=== PATIENT | female | born 1950 | race Caucasian/White ===

== ENCOUNTER 2021-10-30 11:08 | Outpatient (CLI) | payer MEDICARE, BC, SELFPAY ==
[2021-10-30 13:43] LABS: Chloride* 103 mmol/L (96-114); Potassium* 4.1 mmol/L (3.6-5.1); Sodium* 141 mmol/L (135-149)
[2021-10-30 13:45] LABS: Creatinine* 0.6 mg/dL (0.5-1.5); Estimated Glomerular Filt Rate 95 ml/min
[2021-10-30 13:46] LABS: Blood Urea Nitrogen* 15 mg/dL (7-30); Carbon Dioxide* 28 mmol/L (20-32); Glucose* 108 mg/dL (60-115)
== END 2021-10-30 11:09 | disposition home or self-care (01) ==
PROVIDERS: PCP Family Medicine; Visit Provider Family Medicine
DX: Z00.00 Encounter for general adult medical examination without abnormal findings (principal); E03.9 Hypothyroidism, unspecified; K21.9 Gastro-esophageal reflux disease without esophagitis
CPT/HCPCS: 80048; 84443

== ENCOUNTER 2023-01-21 12:02 | Outpatient (CLI) | payer MEDICARE, BC, SELFPAY | END 2023-01-21 12:03 | disposition home or self-care (01) | PROVIDERS: PCP Family Medicine; Visit Provider Family Medicine | DX: E78.2 Mixed hyperlipidemia (principal); I10 Essential (primary) hypertension; E03.9 Hypothyroidism, unspecified | CPT/HCPCS: 80048; 80061; 84443 ==

== ENCOUNTER 2023-04-26 07:58 | Emergency (ER) | payer MEDICARE, BC, SELFPAY ==
[2023-04-26 08:06] VITALS: BP 193/86; PULSE 118; RESP 20; TEMP 37.5; O2SAT 98; BMI 28.4
[2023-04-26 08:34] VITALS: PULSE 103; O2SAT 97
[2023-04-26 08:56] LABS: PCR FLU A Negative PCR FLU A (Negative); PCR FLU B Negative PCR FLU B (Negative); PCR RSV Negative PCR RSV (Negative); SARS PCR* Negative SARS-CoV-2 (Negative)
--- NOTE | 2023-04-26 09:16 | ED.GENADULT ---
HPI - General Adult General Date Seen: 04/26/23 Chief complaint: Cough Stated complaint: cough, congestion Time Seen by Provider: 04/26/23 09:15 History of Present Illness HPI narrative: 73-year-old female with a history of GERD, hyperlipidemia, hypothyroidism, and connective tissue disease presenting to the emergency department this morning for evaluation of cough. She presents with her , who has been well. She 1st developed symptoms of upper respiratory problems over a month ago. She says the week after [place] she began sick with nasal congestion and sinus symptoms and cough. Multiple of her family members had also been sick around that time. None of them went to the doctor or was diagnosed with any specific illness such as COVID or influenza. She says she had symptoms of nasal congestion and cough for a few weeks and then was finally getting better near the end of March, about 0 week or 2 ago. She had a week where she was relatively asymptomatic and is now having occurring symptoms that began 3 or 4 days ago with a persistent, nagging, nonproductive cough. She is not really short of breath. No significant discomfort in her chest or ribs. No high fever. She has had some body aches and chills. No nausea or vomiting. No rash. No earache. Not much nasal congestion. No sore throat. She has no history of asthma or underlying lung disease. Related Data Home Medications Medication Instructions Recorded Confirmed acetaminophen 500 mg tablet 1,000 mg PO Q6H PRN 10/25/21 01/21/23 aspirin 81 mg tablet,delayed 81 mg PO DAILY 10/25/21 01/21/23 release calcium carbonate 600 mg-vitamin 1 tab PO DAILY 10/25/21 01/21/23 D3 20 mcg (800 unit) tablet multivitamin (Multiple Vitamins 1 tab PO QDAY 10/25/21 01/21/23 tablet) Previous Rx's Medication Instructions Recorded omeprazole 20 mg capsule,delayed 20 mg PO DAILY #90 caps 10/31/21 release levothyroxine 112 mcg tablet 112 mcg PO DAILY #90 tabs 01/23/23 amoxicillin 500 mg capsule 1,000 mg (2 x 500 mg) PO TID 7 04/26/23 days #42 caps benzonatate 100 mg capsule 100 mg PO TID PRN cough #14 caps 04/26/23 Allergies Allergy/AdvReac Type Severity Reaction Status Date / Time metoprolol Allergy Severe extreme Verified 01/21/23 11:24 weakness, feeling hung over lisinopril Allergy Intermediate GI upset, Verified 01/21/23 11:24 diarrhea doxycycline Allergy Mild Unknown Verified 01/21/23 11:24 erythromycin base Allergy Mild Unknown Verified 01/21/23 11:24 [facility] Medical History (Updated 04/26/23 @ 09:32 by Ladarius Hardy MD) Mixed hyperlipidemia ?E78.2 - Mixed hyperlipidemia (ICD-10) GERD (gastroesophageal reflux disease) ?K21.9 - Gastro-esophageal reflux disease without esophagitis (ICD-10) Undifferentiated connective tissue disease (2008) ?M35.9 - Systemic involvement of connective tissue, unspecified (ICD-10) Hypothyroidism ?E03.9 - Hypothyroidism, unspecified (ICD-10) History of endometrial biopsy (2016) ?Z92.89 - Personal history of other medical treatment (ICD-10) History of cystocele ?Z87.448 - Personal history of other diseases of urinary system (ICD-10) Essential hypertension ?I10 - Essential (primary) hypertension (ICD-10) Bilateral fibrocystic breast changes ?N60.11 - Diffuse cystic mastopathy of right breast (ICD-10) ?N60.12 - Diffuse cystic mastopathy of left breast (ICD-10) Surgical History (Updated 10/18/21 @ 08:40 by Papito Shook) History of umbilical hernia repair (1990) ?Z98.890 - Other specified postprocedural states (ICD-10) ?Z87.19 - Personal history of other diseases of the digestive system (ICD-10) History of tubal ligation (1990) ?Z98.51 - Tubal ligation status (ICD-10) History of squamous cell carcinoma excision (2016) ?Z98.890 - Other specified postprocedural states (ICD-10) ?Z85.9 - Personal history of malignant neoplasm, unspecified (ICD-10) History of cataract extraction (1990) ?Z98.49 - Cataract extraction status, unspecified eye (ICD-10) Family History (Updated 10/18/21 @ 08:41 by Papito Shook) Father Bladder cancer Heart disease Mother Stroke Uterine cancer Social History (Updated 01/21/23 @ 11:39 by Marisa Aguilar ~ [facility], 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, non-smoker, rare EtOH What is your current living situation?: I presently have a place to live Problems where you live: no known problems In the past 12 months, utilities in danger of being shut off: no In past 12 months, lack of transportation kept you from medical appts, meetings, work, or getting things needed for daily living: no Smoking Status: Former smoker How often do you have a drink containing alcohol: never How often do you have six or more drinks on one occasion: Never AUDIT-C Alcohol total score: 0 Non-prescribed substance use: denies use How often does anyone, including family, friends and others, physically hurt you: never How often does anyone, including family, friends and others, insult or talk down to you: never How often does anyone, including family, friends and others, threaten you with harm: never How often does anyone, including family, friends and others, scream or curse at you: never Little interest or pleasure in doing things: not at all Feeling down, depressed, or hopeless: not at all Exam Narrative: Exam Narrative: Constitutional: Appears well-developed and well-nourished. Alert. Conversant. Non toxic. HENT: Head: Atraumatic. Nose: Nose normal. No purulent drainage. Right ear: Mastoid, pinna, canal, TM are normal. Left ear: Mastoid, pinna, canal, TM are normal. Mouth/Throat: Oral mucosa is clear and moist. no trismus. Pharynx normal. Tonsils symmetric. No tonsillar enlargement, erythema, or exudate. Eyes: Conjunctivae normal. EOM normal. Pupils equal, round, and reactive to light. No scleral icterus. Neck: Normal range of motion. Neck supple. No tracheal deviation present. Cardiovascular: Normal rate, regular rhythm. No gallop. No friction rub. No murmur heard. Symmetric radial artery pulses Pulmonary/Chest: Frequent cough. Effort normal. No stridor. No respiratory distress. No wheezes. Left basilar rales. No rhonchi . No tenderness. Musculoskeletal: RUE: Normal range of motion. No tenderness. No deformity LUE: Normal range of motion. No tenderness. No deformity RLE: Normal range of motion. No edema. No tenderness. No deformity LLE: Normal range of motion. No edema. No tenderness. No deformity Neurological: Alert and oriented to person, place, and time. Normal strength. CN II-VII intact. No sensory deficit. GCS eye subscore is 4. GCS verbal subscore is 5. GCS motor subscore is 6. Normal coordination Skin: Skin is warm and dry. No rash noted. No pallor. Normal capillary refill. Psychiatric: Normal mood. Normal affect. Const: Vital Signs, click to edit/add: Vital Signs - 24 hr 04/26/23 08:06 04/26/23 08:34 Temperature 99.5 F Pulse Rate [Right Pulse Oximeter] 118 H 103 H Respiratory Rate 20 Blood Pressure [Ri ght Upper Arm] 193/86 H Pulse Oximetry 98 97 Oxygen Delivery Me thod Room Air Room Air Course Vital Signs Vital signs: Initial Vital Signs Temperature 99.5 F 04/26/23 08:06 Temperature Source Temporal Artery Scan 04/26/23 08:06 Pulse Rate 118 H 04/26/23 08:06 Respiratory Rate 20 04/26/23 08:06 Blood Pressure 193/86 H 04/26/23 08:06 Blood Pressure Mean 121 H 04/26/23 08:06 Blood Pressure Position Sitting 04/26/23 08:06 Pulse Oximetry 98 04/26/23 08:06 Oxygen Delivery Method Room Air 04/26/23 08:06 Vital Signs Temperature 99.5 F 04/26/23 08:06 Pulse Rate 118 H 04/26/23 08:06 Respiratory Rate 20 04/26/23 08:06 Blood Pressure 193/86 H 04/26/23 08:06 Pulse Oximetry 98 04/26/23 08:06 Oxygen Delivery Method Room Air 04/26/23 08:06 Temperature 99.5 F 04/26/23 08:06 Pulse Rate 103 H 04/26/23 08:34 Respiratory Rate 20 04/26/23 08:06 Blood Pressure 193/86 H 04/26/23 08:06 Pulse Oximetry 97 04/26/23 08:34 Oxygen Delivery Method Room Air 04/26/23 08:34 Medical Decision Making MDM Narrative Medical decision making narrative: This patient presents for evaluation of []. This is consistent with an upper respiratory tract infection. Viral testing is fortunately negative for COVID, influenza, RSV.. There is no signs at this point of serious bacterial infection such as OM, RPA, epiglottitis, [employer]IST, strep pharyngitis,, meningitis, bacteremia, serious bacterial infection. She is coughing frequently he while here in the ER. Lung exam does reveal rales in the left base which I think is suspicious for an area of community-acquired pneumonia. I do not feel a CXR is indicated at this point because clinically the patient has concerning findings and we are going to treat with antibiotics. Patient is also worried about possible sinus infection. She is not really having a lot of facial pain or purulent drainage to strongly suggest sinusitis. However sinus infection would likely be covered by amoxicillin which will be used to treat her CAP. First line antibiotic for her pneumonia would be doxycycline but she is allergic. There are no gastrointestinal symptoms at this point and no signs of dehydration. Close followup with primary care physician is indicated. Return to ED for fever > 103, protracted vomiting, confusion, or other worsening. If not improved within 2-3 days, should follow up for re-evaluation and consideration of chest imaging, lab workup, or alteration in antibiotic therapy. Lab Data Labs: Lab Results 04/26/23 Range/Units 08:12 SARS-CoV-2 (PCR) Negative SARS-CoV-2 (Negative) Influenza Type A (PCR) Negative PCR FLU A (Negative) Influenza Type B (PCR) Negative PCR FLU B (Negative) RSV (PCR) Negative PCR RSV (Negative) Discharge Plan Discharge Clinical Impression: Pneumonia Patient Disposition: Home, Self-Care Condition: Stable Instructions: Community Acquired Pneumonia (DC) Additional Instructions: As we discussed, please recheck with your doctor or return to the ER if you are not improving within the next 3 days. If you have worsening symptoms such as worsening cough, high fever, trouble breathing, chest pain, please come back to the ER right away to be rechecked. Prescriptions: New benzonatate 100 mg capsule 100 mg PO TID PRN (Reason: cough) Qty: 14 0RF amoxicillin 500 mg capsule 1,000 mg PO TID 7 Days Qty: 42 0RF No Action calcium carbonate-vitamin D3 600 mg-20 mcg (800 unit) tablet 1 tab PO DAILY acetaminophen 500 mg tablet 1,000 mg PO Q6H PRN Rx Instructions: NO MORE THAN 4000 MG/DAY aspirin 81 mg tablet,delayed release (DR/EC) 81 mg PO DAILY multivitamin [Multiple Vitamins] Tablet 1 tab PO QDAY omeprazole 20 mg capsule,delayed release(DR/EC) 20 mg PO DAILY Qty: 90 3RF levothyroxine 112 mcg tablet 112 mcg PO DAILY Qty: 90 3RF Follow Up/Referrals: Kadeem Varner MD [Primary Care Provider] - Stand Alone Forms: [employer] Info Instructions
== END 2023-04-26 09:45 | disposition home or self-care (01) ==
LOC: ED 09:38
PROVIDERS: Emergency Provider Emergency Medicine; PCP Family Medicine
DX: J18.9 Pneumonia, unspecified organism (principal)
CPT/HCPCS: 87631; 99282; 99283; 99284

== ENCOUNTER 2024-09-20 13:19 | Outpatient (CLI) | payer MEDICARE, BC, SELFPAY | END 2024-09-20 13:20 | disposition home or self-care (01) | PROVIDERS: PCP Family Medicine; Visit Provider Family Medicine | DX: E78.2 Mixed hyperlipidemia (principal); E03.9 Hypothyroidism, unspecified; I10 Essential (primary) hypertension | CPT/HCPCS: 80048; 80061; 84443 ==